=== PATIENT | male | born 1940 | race Caucasian/White ===

== ENCOUNTER → 2020-04-11 | Outpatient (CLI) | payer MEDICARE, OTHER | END | disposition home or self-care (01) | LOC: LAB SHORT 11:26 → PLD 11:26 | DX: D48.5 Neoplasm of uncertain behavior of skin (principal) | CPT/HCPCS: 88305 ==

== ENCOUNTER → 2022-02-02 | Outpatient (CLI) | payer OTHER ==
[2022-02-02 10:20] LABS: Albumin, Blood 3.5 g/dL (3.4-5.0); Bilirubin, Total 0.4 mg/dL (0.1-1.0); Bun/Creatinine Ratio 17.4 (12.0-20.0); Calcium, Blood 8.7 mg/dL (8.5-10.1); Creatinine, Blood 0.75 mg/dL (0.60-1.20); Globulin, Blood 3.5 g/dL (2.2-4.0); Potassium, Blood 3.9 mmol/L (3.5-5.5)
== END | disposition home or self-care (01) ==
LOC: LAB 09:00 → LAB SHORT 09:00
PROVIDERS: Physician Assistant
DX: U07.1 COVID-19 (principal)
CPT/HCPCS: 80053

== ENCOUNTER → 2023-05-08 | Outpatient (CLI) | payer OTHER | LOC: LAB SHORT 08:31 → LAB 08:31 | DX: L72.0 Epidermal cyst (principal) | CPT/HCPCS: 88305 ==

== ENCOUNTER 2024-04-30 19:26 | Inpatient (IN) | payer OTHER ==
[~2024-04-30] VITALS: Ht 175.3 cm; Wt 80.0 kg
[2024-04-30] MEDS ORDERED: SYNTHROID100 M14 PO (19:45)
[2024-04-30] MEDS ORDERED: FINA5 PO (19:45)
[2024-04-30] MEDS ORDERED: Nitroglycerin 1 INCH/GM PKT TOP ONE (19:45)
[2024-04-30] MEDS ORDERED: NS 250 ML IV ONE (19:46)
[2024-04-30] MEDS ORDERED: Clopidogrel Bisulfate 300 MG Cap ONE (19:46)
[2024-04-30] MEDS ORDERED: Verapamil HCL 2.5 MG/ML 2ML Injection ONE (19:46)
[2024-04-30] MEDS ORDERED: Heparin Sodium 1000 Units/ML 10ML MDV ONE (19:46)
[2024-04-30] MEDS ORDERED: NS 1,000 ML IV ONE ×2 (19:47→20:04)
[2024-04-30 19:48] LABS: BASOPHILS ABSOLUTE AUTO 0.06 K/mm3 (0.00-0.23); BASOPHILS PERCENT AUTO 1 % (0-2); EOSINOPHILS ABSOLUTE AUTO 0.31 K/mm3 (0.00-0.68); EOSINOPHILS PERCENT AUTO 3 % (0-6); Hematocrit 36.8 % (37.0-53.0); Hemoglobin 12.4 g/dL (13.5-17.5); IMMATURE GRAN ABSOLUTE AUTO 0.03 K/mm3 (0.00-0.10); IMMATURE GRAN PERCENT AUTO 0 % (0-1); LYMPHOCYTES ABSOLUTE AUTO 3.55 K/mm3 (0.84-5.20); LYMPHOCYTES PERCENT AUTO 38 % (21-46); MONOCYTES ABSOLUTE AUTO 0.84 K/mm3 (0.16-1.47); MONOCYTES PERCENT AUTO 9 % (4-13); Mean Corpuscular HGB 28.6 pg (26.0-34.0); Mean Corpuscular HGB Conc 33.7 g/dL (31.5-36.5); Mean Corpuscular Volume 85 fL (80-100); Mean Platelet Volume 11.2 fL (9.1-12.4); NEUTROPHILS ABSOLUTE AUTO 4.47 K/mm3 (1.96-9.15); NEUTROPHILS PERCENT AUTO 48 % (41-73); Platelet Count 376 K/mm3 (150-400); RDW Coefficient Variation 14.6 % (11.7-14.2); RDW Standard Deviation 45.2 fL (35.1-46.3); Red Blood Cell Count 4.34 M/mm3 (4.30-5.90); White Blood Cell Count 9.26 K/mm3 (4.00-11.30)
[2024-04-30] MEDS ORDERED: FentaNYL Citrate 50 MCG/ML 2 ML Injection ONE (19:53)
[2024-04-30] MEDS ORDERED: Tirofiban HCL Monohydrate 3.75 MG/15 ML Vial ONE (19:54)
[2024-04-30] MEDS ORDERED: Midazolam HCl 1MG / ML 2ML Vial ONE (19:54)
[2024-04-30] MEDS ORDERED: Atropine Sulfate 0.1 MG/ML 10ML SYR ONE (19:54)
[2024-04-30] MEDS ORDERED: Nitroglycerin 2 MG/20 ML BTL ONE (19:56)
[2024-04-30 20:04] LABS: Prothrombin Time Results 10.7 Sec (9.7-11.5)
[2024-04-30 20:11] LABS: Albumin, Blood 3.3 g/dL (3.4-5.0); Bilirubin, Total 0.3 mg/dL (0.1-1.0); Bun/Creatinine Ratio 23.8 (12.0-20.0); Calcium, Blood 9.3 mg/dL (8.5-10.1); Creatinine, Blood 0.8 mg/dL (0.60-1.20); Globulin, Blood 3.4 g/dL (2.2-4.0); Potassium, Blood 4.1 mmol/L (3.5-5.5); Total Protein, Blood 6.7 g/dL (6.4-8.2)
[2024-04-30] MEDS ORDERED: FLU VACC TS2024-25(6MOS UP)/PF 45 MCG/0.5 ML SYRINGE IM SCH (21:00)
[2024-04-30] MEDS ORDERED: NS 1,000 ML IV SCH (21:00)
[2024-04-30] MEDS ORDERED: Ondansetron HCl 2 MG / ML 2ML Vial IV PRN (21:05)
[2024-04-30] MEDS ORDERED: Acetaminophen 325 MG TABLET PO PRN (21:05)
[2024-04-30 21:30] VITALS: BP 129/74
[2024-04-30 22:00] VITALS: BP 143/74
--- NOTE | 2024-04-30 22:00 | NUR ---
ASSUMPTION OF CARE FROM APPLICATIONS PROGRAMMER PT ARRIVED AT 2100 FROM APPLICATIONS PROGRAMMER, AWAKE AND ALERT AND ORIENTED X 4. PT CAN MOVE ALL EXTREMITIES AND SENSATION IS INTACT THROUGHOUT. HR IS SINUS RHYTHM 74 AND STABLE BP, 124/74. RADIAL ACCESS SITE CLEAN , DRY, WITHOUT SIGNS OF HEMATOMA. 14 ML IN TR BAND PER APPLICATIONS PROGRAMMER RN. LEFT SIDE CHEST/SHOULDER PAIN IS 2/10 NOW. RESPIRATIONS REGULAR AND WITHOUT EXTRA EFFORT. 98% SATURATION ON RA. LUNGS CLEAR. NO SOB. NO AB PAIN, N/V. ABDOMEN IS DISTENDED MORE THAN USUAL. PT HAS HISTORY OF HIATAL HERNIA. PT ACCLIMATED TO ROOM AND CALL LIGHT WHICH WAS LEFT NEARBY.
[2024-04-30 23:00] VITALS: BP 139/75
[2024-05-01] VITALS (14 sets, daily range): BP systolic 149–184; BP diastolic 66–131
[2024-05-01 04:07] LABS: BASOPHILS ABSOLUTE AUTO 0.03 K/mm3 (0.00-0.23); BASOPHILS PERCENT AUTO 0 % (0-2); EOSINOPHILS ABSOLUTE AUTO 0.04 K/mm3 (0.00-0.68); EOSINOPHILS PERCENT AUTO 1 % (0-6); Hematocrit 37.7 % (37.0-53.0); Hemoglobin 12.1 g/dL (13.5-17.5); IMMATURE GRAN ABSOLUTE AUTO 0.03 K/mm3 (0.00-0.10); IMMATURE GRAN PERCENT AUTO 0 % (0-1); LYMPHOCYTES ABSOLUTE AUTO 1.12 K/mm3 (0.84-5.20); LYMPHOCYTES PERCENT AUTO 14 % (21-46); MONOCYTES ABSOLUTE AUTO 0.74 K/mm3 (0.16-1.47); MONOCYTES PERCENT AUTO 9 % (4-13); Mean Corpuscular HGB 28.2 pg (26.0-34.0); Mean Corpuscular HGB Conc 32.1 g/dL (31.5-36.5); Mean Corpuscular Volume 88 fL (80-100); Mean Platelet Volume 11.2 fL (9.1-12.4); NEUTROPHILS ABSOLUTE AUTO 6.07 K/mm3 (1.96-9.15); NEUTROPHILS PERCENT AUTO 76 % (41-73); Platelet Count 282 K/mm3 (150-400); RDW Coefficient Variation 14.7 % (11.7-14.2); RDW Standard Deviation 47.7 fL (35.1-46.3); Red Blood Cell Count 4.29 M/mm3 (4.30-5.90); White Blood Cell Count 8.03 K/mm3 (4.00-11.30)
[2024-05-01 04:44] LABS: Alanine Aminotransfer (ALT/SGP 48 U/L (12-78); Albumin/Globulin Ratio 0.9 (0.8-1.8); Alk Phos 83 U/L (50-136); Anion Gap 12 mmol/L (3-11); Aspartate Aminotrans (AST/SGOT 147 U/L (12-37); Bilirubin, Total 0.2 mg/dL (0.1-1.0); Blood Urea Nitrogen 20 mg/dL (8-24); Bun/Creatinine Ratio 31.3 (12.0-20.0); CHOL/HDL RATIO 5.9; CO2, Blood 19 mmol/L (21-32); Calcium, Blood 8.7 mg/dL (8.5-10.1); Chloride, Blood 111 mmol/L (98-108); Cholesterol 164 mg/dL (50-200); Creatinine, Blood 0.64 mg/dL (0.60-1.20); Globulin, Blood 3.4 g/dL (2.2-4.0); Glomerular Filtration Rate 93 (60-); Glucose, Blood 269 mg/dL (70-99); HDL Cholesterol 28 mg/dL (>39); LDL/HDL RATIO Unable to Calculate; Low Density Lipoprotein Chol Unable to Calculate mg/dL (0-110); Magnesium, Blood 2.5 mg/dL (1.6-2.4); Potassium, Blood 4.2 mmol/L (3.5-5.5); Sodium, Blood 138 mmol/L (136-145); Total Protein, Blood 6.4 g/dL (6.4-8.2); Triglycerides 509 mg/dL (30-160); Very Low Density Lipoprot Chol Unable to Calculate mg/dL (6-32)
--- NOTE | 2024-05-01 05:00 | NUR ---
TR BAND BLOCK NOTE PT ARRIVED AT [address] IN [address] AND 14 ML INSIDE 2200 12 2235 11 2305 9 0000 8 0005 7 0110 4 0130 0 AT 0005 ON 05/01/24, A SCANT AMOUNT OF POSSIBLY NEW BLOOD WAS SEEN JUST MEDIAL TO ACCESS SITE SO MORE TIE WAS TAKEN BEFORE NEXT AIR RELEASE TR BAND WAS REMOVED AT 0500 WITHOUT INCIDENT AND WITHOUT SIGNS OF BLEEDING AND A FRAME TEGADERM WAS PLACED OVER SITE.
[2024-05-01] MEDS ORDERED: Levothyroxine Sodium 0.1 MG Tab PO SCH (06:00)
--- NOTE | 2024-05-01 06:42 | NUR ---
PT LYING IN BED SLEEPING. HE AWAKES TO VOICE AND IS ALERT AND ORIENTED TO ALL. PT IS MOBILE, STEADY ON FEET AND INTACT SENSATION TO TOUCH AND TEMPERATURE IN ALL EXTREMITIES, INCLUDING RIGHT HAND. RIGHT RADIAL ACCESS SITE IS TEGADERMED AND IS CLEAN, DRY, AND WITHOUT SIGNS OF HEMATOMA. HEART RHYTHM IS 1ST DEGREE AV BLOCK WITH NV OF 35MS. BP IS STABLE TO ELEVATED WITH SBP CLIMBING TO 150S AND 160S. PT C/O MILD 2/10 LEFT CHEST PAIN, SIMILAR IN CHARACTER THE PAIN THAT BROUGHT HIM TO THE HOSPITAL. OF 0400. RESPIRATIONS REGULAR AND SAT >95% ON RA. AB DISTENDED BUT NOT PAINFUL. LAST OF 1 LITER OF NS INFUSING INTO R AC. AM LABS NOTABLE FOR TRIGLYCERIDES OF 504. REPORT GIVEN TO ONCOMING NURSE. PT LEFT WITH CALL LIGHT NEARBY. PT ASKED FOR TO BE CALLED BEFORE SHIFT CHANGE BUT HER NUMBER COULD NOT BE LOCATED AT THIS TIME.
[2024-05-01] MEDS ORDERED: Finasteride 5 MG Tab PO SCH (09:00)
[2024-05-01] MEDS ORDERED: Atorvastatin 40 MG Tab PO SCH (09:00)
[2024-05-01] MEDS ORDERED: Aspirin 81 MG Chew PO SCH (09:00)
[2024-05-01] MEDS ORDERED: Clopidogrel Bisulfate 75 MG Tab PO SCH (09:00)
[2024-05-01] MEDS ORDERED: Enoxaparin 40 MG/0.4 ML SYR SC SCH (09:00)
[2024-05-01] MEDS ORDERED: CLOP75 PO (13:15)
[2024-05-01] MEDS ORDERED: ASPI81CH PO (13:15)
[2024-05-01] MEDS ORDERED: ATOR40TA PO (13:15)
--- NOTE | 2024-05-01 14:11 | NUR ---
SHIFT SUMMARY: PT WAS ALERT AND PLEASANT WHEN I ARRIVED TODAY. HE DENIED PAIN OR NAUSEA AND SAID HE HAD FELT AN IMMEDIATE RELIEF OF HIS CHEST PAIN DURING HIS STENT PLACEMENT. HE GOT UP TWICE WITH NURSING STANDBY TO USE THE TOILET. PATIENT WAS ANXIOUS TO DISCHARGE. WHEN DR MIXON CAME TO ROUND ON THE PATIENT WE DISCUSSED HIS ELEVATED BLOOD SUGARS AND HIS ELEVATED BLOOD PRESSURE. PT STATED HE DOES NOT TAKE MEDICATION FOR HIS BLOOD PRESSURE AT HOME AND HIS BLOOD PRESSURE IS NORMALLY 120S SYSTOLIC. I INFORMED DR MIXON THAT HE'S BEEN HYPERTENSIVE THIS MORNING AND WE REVIEWED HIS CURRENT ELEVATED BLOOD PRESSURE. HE ADVISED THIS WOULD BE ADDRESSED OUTPATIENT BY THE TEST CENTER MANAGER. CARDIO SIGNED OFF ON DISCHARGE OF THE PATIENT. HE ATE HIS MEALS HAD NO ADDITIONAL ISSUE DURING SHIFT, NO COMPLAINTS. PT WAS PROVIDED DISCHARGE EDUCATION, IVS WERE REMOVED, ALL ITEMS WERE PROVIDED TO HIM AND HE WAS TAKEN OUT IN A WHEELCHAIR FOR DISCHARGE.
== END 2024-05-01 13:05 | disposition home or self-care (01) | DRG 322 ==
LOC: ER 19:26 → ICUE 19:52
PROVIDERS: Student in an Organized Health Care Education/Training Program; ADMIT Student in an Organized Health Care Education/Training Program
PROC: 027034Z Dilation of Coronary Artery, One Artery with Drug-eluting Intraluminal Device, Percutaneous Approach (ICD-10-PCS; principal; 2024-04-30)
PROC: B2111ZZ Fluoroscopy of Multiple Coronary Arteries using Low Osmolar Contrast (ICD-10-PCS; 2024-04-30)
PROC: 4A023N7 Measurement of Cardiac Sampling and Pressure, Left Heart, Percutaneous Approach (ICD-10-PCS; 2024-04-30)
DX: I21.29 ST elevation (STEMI) myocardial infarction involving other sites (principal); E11.9 Type 2 diabetes mellitus without complications; K44.9 Diaphragmatic hernia without obstruction or gangrene; E03.9 Hypothyroidism, unspecified; Z66 Do not resuscitate; I44.0 Atrioventricular block, first degree; Z88.1 Allergy status to other antibiotic agents; Z79.890 Hormone replacement therapy; Z79.899 Other long term (current) drug therapy
CPT/HCPCS: 36415; 71045; 76937; 80053; 80061; 83036; 83735; 84443; 84484; 85025; 85347; 85610; 85730; 92953; 93005; 93010; 93306; 93458; 99152; 99153; 99291-25; A9270; C1725; C1769; C1874; C1887; C1894; C9600; C9606; J0461; J1644; J1650; J2250; J3010; J3246; J7030; J7050; Q9967